=== PATIENT | male | born 1965 | race Two or more races ===

== ENCOUNTER 2019-08-16 15:38 | Outpatient (CLI) | payer OTHER | END 2019-08-16 16:37 | disposition home or self-care (01) | LOC: LAB 15:38 | DX: N39.0 Urinary tract infection, site not specified (principal) ==

== ENCOUNTER → 2022-08-04 | Outpatient (CLI) | payer OTHER | END | disposition home or self-care (01) | LOC: RAD 16:45 | PROVIDERS: ATTEND Specialist | DX: J45.998 Other asthma (principal) ==